=== PATIENT | male | born 2000 | race Caucasian/White ===

== ENCOUNTER 2020-11-06 16:29 | Emergency (ER) | payer SELFPAY ==
[2020-11-06] MEDS ORDERED: Ondansetron ODT 4 MG TAB ONE (16:42)
== END 2020-11-06 17:40 | disposition home or self-care (01) ==
LOC: ERS 16:29
DX: K21.9 Gastro-esophageal reflux disease without esophagitis (principal)
CPT/HCPCS: 99283; Q0162

== ENCOUNTER 2020-11-11 19:12 | Inpatient (IN) | payer SELFPAY ==
[~2020-11-11 19:12] MED LIST: Iopamidol-370 76% 500 ML 1 ML ONE
[2020-11-11 19:52] LABS: #Basophils 0.1 thou/uL (0.0-0.2); #Lymphocytes 2.2 thou/uL (1.20-3.40); #Monocytes 0.9 thou/uL (0.11-0.59); #Neutrophils 5.3 thou/uL (1.40-6.50); %Basophils 1.4 % (0.0-1.0); %Eosinophils 0.4 % (0.0-10.0); %Lymphocytes 25.4 % (21.0-51.0); %Monocytes 10.7 % (0.0-10.0); %Neutrophils 62.1 % (42.0-75.0); Hemoglobin 19.2 g/dL (14.0-18.0); Mean Corpuscular HGB CONC 34.9 g/dL (32.0-36.0); Mean Corpuscular Hemoglobin 29.7 pg (27.0-31.0); Mean Corpuscular Volume 85.2 fL (78.0-98.0); Mean Platelet Volume 7.6 fL (7.4-10.4); Platelet Count 367 thou/uL (130-400); RBC Distribution Width 11.9 % (11.5-14.5); Red Blood Cell (RBC) Count 6.45 mill/uL (4.70-6.10); White Blood Cell (WBC) Count 8.5 thou/uL (4.8-10.8)
--- NOTE | 2020-11-11 20:00 | RAD ---
EXAM: CHEST ONE VIEW HISTORY: Intermittent diffuse abdominal pain/epigastric pain. Nausea and vomiting. COMPARISON: None FINDINGS: The cardiac silhouette and pulmonary vasculature are within normal limits. The lungs are expanded and clear. The osseous structures are intact. IMPRESSION: No acute cardiopulmonary process.
[2020-11-11 20:15] LABS: ALT (SGPT) 32 U/L (8-55); AST (SGOT) 17 U/L (5-34); Albumin 5.4 g/dL (3.5-5.0); Alkaline Phosphatase 114 U/L (40-110); BUN (Urea Nitrogen) 16 mg/dL (8.9-20.6); Bilirubin, Total 0.9 mg/dL (0.2-1.2); Calc. Creatinine Clearance 0 mL/min (70-130); Chloride 102 mmol/L (98-107); Globulin 3.7 g/dL (2.4-3.5); Glucose 456 mg/dL (70-105); Lipase 26 U/L (8-78); Protein, Total 9.1 g/dL (6.0-8.3); Sodium 133 mmol/L (136-145)
[2020-11-11 20:33] LABS: Free T4 (Free Thyroxine) 0.9 ng/dL (0.70-1.48); Thyroid Stimulating Hormone 1.8938 uIU/mL (0.35-4.94)
--- NOTE | 2020-11-11 20:37 | CT ---
CT ANGIOGRAM THORAX WITH IV CONTRAST AND 3-D RECONSTRUCTIONS CLINICAL INDICATION: Chest pain and weight loss. Shortness of breath over past week. COMPARISON: None FINDINGS: Pulmonary arteries: No filling defects are seen in the pulmonary arteries to suggest a pulmonary embo nasrin. Aorta: The aorta is normal in caliber without evidence of an aortic dissection. Lungs: Clear without evidence of consolidation or pleural effusion. Large airways are patent. Mediastinum: No enlarged lymph nodes are seen by CT size criteria. Thyroid gland: Incompletely imaged. Imaged inferior portion thyroid gland has a normal appearance Osseous structures: No suspicious lytic or sclerotic osseous lesion. Chest wall: No abnormality visualized. Upper abdomen: There are several nonobstructing right renal calculi visualized largest in the superio r pole measuring 4 mm. IMPRESSION: 1. No CT evidence of a pulmonary embolus. 2. No acute findings in the chest. 3. Nonobstructing right renal calculi.
[2020-11-11 20:43] LABS: Bacteria/HPF None Seen HPF (None Seen); Bilirubin Negative (Negative); Blood, Urine Trace (Negative); Clarity Clear (Clear); Glucose, Urine (Dipstick) Greater than 1000 mg/dL (Negative); Ketone, Urine Greater than 150 mg/dL (Negative); Leukocyte Negative Leu/uL (Negative); Nitrite Negative (Negative); Protein, Urine (Dipstick) 70 mg/dL (Neg-Trace); RBC/HPF 0-3 HPF (0-3); Specific Gravity, Urine 1.031 (1.002-1.036); Squamous Epithelial 0-3 HPF (0-3); Urobilinogen Normal mg/dL (Less than 2); WBC/HPF 0-3 HPF (0-3); pH, Urine 5.5 (5.0-9.0)
[2020-11-11 20:44] LABS: Carbon Dioxide Less than 8 mmol/L (22-29)
[2020-11-11 20:49] LABS: Amphetamine Not Detected (NotDetected); Barbiturates Screen Not Detected (NotDetected); Benzodiazepine Screen Not Detected (NotDetected); Cocaine Metabolite Screen Not Detected (NotDetected); Medtox Control Line Valid? VALID (VALID); Medtox Reader # READER 4; Methadone Not Detected (NotDetected); Methamphetamine Not Detected (NotDetected); Opiate Screen Not Detected (NotDetected); Oxycodone Screen Not Detected (NotDetected); Phencyclidine (PCP) Not Detected (NotDetected); THC/Cannabinoid Screen Not Detected (NotDetected); Tricyclic Screen Not Detected (NotDetected)
--- NOTE | 2020-11-11 21:24 | CT ---
CT CHEST WITHOUT CONTRAST: History: Abdominal pain Comparison: None FINDINGS: Although this is a noncontrast exam, given the CT angiogram that was performed just 25 minutes before , contrast is seen in the renal collecting systems, therefore, rendering evaluation for calculi is no ndiagnostic. Contrast through both renal collecting systems, ureters, and the urinary bladder. The previously desc ribed superior interpolar and renal calculi are poorly seen. No dilated loops of large or small bowel. No free intraperitoneal gas or fluid. No acute osseous abno rmality. Solid organ evaluation is limited without intravenous contrast and lack of normal fat along with stre ak artifact from the extensive contrast in the systems. No perigallbladder inflammation. IMPRESSION: 1. Poor visualization of the renal calculi due to contrast within the collecting systems, ureter s, and urinary bladder. No significant hydroureteronephrosis. 2. No other acute inflammatory process in the abdomen or pelvis, which is limited to noncontrast exam. POS: HOME
[2020-11-11] MEDS ORDERED: NS 0.9% w/ 40 MEQ KCL 1,000 ML IV SCH (21:45)
[2020-11-11 21:51] LABS: Analyzer IN Cardio ER; Base Excess -22.4 mEq/L (-2.0 to +3.0); Calcium, Ionized (venous) 1.24 mmol/L (1.16-1.32); Chloride (VBG) 108 mmol/L (98-106); Hemoglobin (Hb) 16.6 g/dL (13.2-17.3); Potassium (VBG) 4.14 mmol/L (3.70-5.30); Sodium 136.5 mmol/L (133-146)
[2020-11-11 21:58] LABS: Actual Bicarbonate (HCO3v) 6 mEq/L (22-28); pH (venous) 7.08 (7.32-7.43)
[2020-11-11] MEDS ORDERED: Sodium Bicarb 50 MEQ/50 ML Abboject 8.4% SYRINGE ONE (22:09)
[2020-11-11] MEDS ORDERED: INSULIN REGULAR IN 0.9 % NACL 100 UNIT/100 ML BAG ONE (22:09)
[2020-11-11 22:49] LABS: Lactic Acid 1.9 mmol/L (0.5-2.2)
[2020-11-11] MEDS ORDERED: Electrolyte Replacement Protocol 1 EACH IVPB PRN (23:43)
[2020-11-11] MEDS ORDERED: Ondansetron ODT 4 MG TAB PO PRN (23:43)
[2020-11-11] MEDS ORDERED: Ondansetron PF 4 MG/2 ML Vial IVP PRN (23:43)
[2020-11-11] MEDS ORDERED: Dextrose 5 %-0.45 % NaCl 1,000 ML IV PRN (23:43)
[2020-11-11] MEDS ORDERED: Sodium Chloride 0.9% 1,000 ML IV PRN ×4 (23:43)
[2020-11-11] MEDS ORDERED: NS 0.9% w/ 20 MEQ KCL 1,000 ML IV PRN ×2 (23:43)
[2020-11-11] MEDS ORDERED: Acetaminophen 325 MG TAB PO PRN (23:43)
[2020-11-11] MEDS ORDERED: HUMULIN R 100 UNITS in Sodium Chloride 0.9% 100 ML IVPB SCH (23:59)
--- NOTE | 2020-11-12 00:03 | PDOC.HHP ---
Hospitalist HPI - History of Present Illness Weight loss, polyuria History of Present Illness: This a 20-year-old male patient with a history of anxiety who presents to the ED on account of abdominal discomfort, polyuria and polydipsia over the past couple of weeks. Patient notes that his symptoms have been going on for several weeks and he was unsure what was going on. He presented to the ED and he on account of abdominal pain and he was discharged on account of possible GERD. With persistent symptoms however came in again. Besides abdominal pain, polyuria, nausea, palpitation and some mild chest pain and general wellness. He denies any diarrhea constipation, fever cough or shortness of breath. At presentation his blood pressure was 126/61, temperature 98.0 respiratory rate ranging between 12 and 18 and saturation 100% on room air. Labs showed hemoglobin of 19.2, platelets 367 and WBC 8.5. Chemistry showed sodium of 133, bicarb was less than 8, anion gap was not calculated above and his creatinine was 1.95. Blood sugar was 456 and beta hydroxybutyrate was 8.83 VBG showed a pH of 7.08. CT scan of chest and abdomen revealed no acute events. He was diagnosed with DKA and Started on amp of bicarb. Normal saline bolus and insulin drip with potassium replacement. Hospitalist was consulted for admission. Hospitalist ROS - Review of Systems Constitutional: reports: weakness, malaise. denies: fever, chills, sweats Respiratory: denies: cough, dry, shortness of breath, hemoptysis Cardiovascular: reports: chest pain, palpitations. denies: orthopnea, paroxysmal noc. dyspnea Gastrointestinal: reports: nausea, abdominal pain. denies: vomiting, diarrhea, constipation Genitourinary: reports: other (Polyuria). denies: dysuria, frequency, incontinence, hematuria, retention Musculoskeletal: denies: neck pain, shoulder pain, arm pain, back pain Skin: denies: rash, lesions, morgan Neurological: denies: weakness, numbness, incoordination, change in speech All other systems reviewed; all pertinent +/- noted in HPI/Subj - Medication Medications: Active Medications Generic Name Dose Route Start Last Admin Trade Name Freq PRN Reason Stop Dose Admin Potassium Chloride/Sodium Chloride 1,000 mls @ 250 mls/hr 11/11/20 21:45 11/11/20 22:50 Ns 0.9% W/ 40 Meq Kcl IV 11/12/20 01:44 1,000 mls .Q4H ADONIS Administration Allergies: Penicillin. Hospitalist History - Past Medical History Other Medical History: Anxiety - Past Surgical History Past Surgical History: reports: no pertinent history - Family History Family History: reports: no pertinent history - Social History Smoking Status: Never smoker Alcohol: reports: None Living Situation: With Family - Exam General Appearance: awake alert ENT: normocephalic atraumatic, no oropharyngeal lesions Heart: RRR, no murmur, no gallops, no rubs Respiratory: CTAB, no wheezes, no rales, no ronchi Gastrointestinal: soft, non-tender, non-distended, normal bowel sounds Extremities: no cyanosis, no clubbing, no edema Neurological: cranial nerve grossly intact, no focal deficits Psychiatric: normal affect, normal behavior, A&O x 3 Hospitalist Results - Labs Result Diagrams: 11/11/20 19:39 11/11/20 23:50 Lab results: WBC 8.5 thou/uL (4.8-10.8) 11/11/20 19:39 Hgb 19.2 g/dL (14.0-18.0) H 11/11/20 19:39 Hct 55.0 % (42.0-52.0) H 11/11/20 19:39 MCV 85.2 fL (78.0-98.0) 11/11/20 19:39 Plt Count 367 thou/uL (130-400) 11/11/20 19:39 Neutrophils % 62.1 % (42.0-75.0) 11/11/20 19:39 VBG pH 7.08 (7.32-7.43) L* 11/11/20 21:45 VBG pCO2 19.4 mmHg (42.0-51.0) L* 11/11/20 21:45 VBG pO2 164.6 mmHg (35.0-45.0) H 11/11/20 21:45 Sodium 133 mmol/L (136-145) L 11/11/20 19:39 Potassium 4.0 mmol/L (3.5-5.1) 11/11/20 19:39 Chloride 102 mmol/L (98-107) 11/11/20 19:39 Carbon Dioxide Less than 8 mmol/L (22-29) L* 11/11/20 19:39 BUN 16 mg/dL (8.9-20.6) 11/11/20 19:39 Creatinine 1.95 mg/dL (0.7-1.3) H 11/11/20 19:39 Glucose 456 mg/dL (70-105) H 11/11/20 19:39 Lactic Acid 1.9 mmol/L (0.5-2.2) 11/11/20 22:19 Calcium 10.0 mg/dL (7.8-10.44) 11/11/20 19:39 Total Bilirubin 0.9 mg/dL (0.2-1.2) 11/11/20 19:39 AST 17 U/L (5-34) 11/11/20 19:39 ALT 32 U/L (8-55) 11/11/20 19:39 Alkaline Phosphatase 114 U/L (40-110) H 11/11/20 19:39 Troponin I Less than 0.010 ng/mL (< 0.028) 11/11/20 19:39 Serum Total Protein 9.1 g/dL (6.0-8.3) H 11/11/20 19:39 Albumin 5.4 g/dL (3.5-5.0) H 11/11/20 19:39 Lipase 26 U/L (8-78) 11/11/20 19:39 Urine Ketones Greater than 150 mg/dL (Negative) A 11/11/20 20:10 Urine Blood Trace (Negative) A 11/11/20 20:10 Urine Nitrite Negative (Negative) 11/11/20 20:10 Ur Leukocyte Esterase Negative Yumiko/uL (Negative) 11/11/20 20:10 Urine RBC 0-3 HPF (0-3) 11/11/20 20:10 Urine WBC 0-3 HPF (0-3) 11/11/20 20:10 Ur Squamous Epith Cells 0-3 HPF (0-3) 11/11/20 20:10 Urine Bacteria None Seen HPF (None Seen) 11/11/20 20:10 Hospitalist H&P A/P - Plan Plan: 20-year-old male patient history of anxiety presenting with generalized abdominal and chest pain with polyuria nausea diagnosed with new onset DKA. DKA Start on DKA protocol Monitor BMP every 4 Electrolyte replacement as needed. Transition to subcut insulin once indicated. History of anxiety Currently stable We will monitor. CODE STATUSfull code VT prophylaxis SCD
[2020-11-12 00:12] LABS: Anion Gap 24 mmol/L (10-20); BUN (Urea Nitrogen) 13 mg/dL (8.9-20.6); Calc. Creatinine Clearance 0 mL/min (70-130); Calcium 8.5 mg/dL (7.8-10.44); Chloride 110 mmol/L (98-107); Glucose 236 mg/dL (70-105); Potassium 3.9 mmol/L (3.5-5.1); Sodium 138 mmol/L (136-145)
[2020-11-12 00:27] LABS: Carbon Dioxide 8 mmol/L (22-29); Phosphorus 1.4 mg/dL (2.3-4.7)
[2020-11-12 03:24] LABS: Anion Gap 15 mmol/L (10-20); BUN (Urea Nitrogen) 13 mg/dL (8.9-20.6); Calc. Creatinine Clearance 0 mL/min (70-130); Calcium 8.2 mg/dL (7.8-10.44); Carbon Dioxide 13 mmol/L (22-29); Chloride 108 mmol/L (98-107); Glucose 142 mg/dL (70-105); Potassium 3.6 mmol/L (3.5-5.1); Sodium 132 mmol/L (136-145)
[2020-11-12] MEDS: D5 1/2 NS w/20 mEq KCL 1,000 ML IV PRN ×2 (03:58→13:52)
[2020-11-12 05:29] LABS: SARS-CoV-2 MS2 Positive; SARS-CoV-2 N Gene Negative; SARS-CoV-2 S Gene Negative; SARS-CoV-2 by NAA Not Detected (NotDetected); SARS-CoV-2 orf1ab Negative
[2020-11-12 05:52] LABS: Anion Gap 13 mmol/L (10-20); BUN (Urea Nitrogen) 12 mg/dL (8.9-20.6); Calc. Creatinine Clearance 0 mL/min (70-130); Calcium 8.3 mg/dL (7.8-10.44); Carbon Dioxide 14 mmol/L (22-29); Chloride 107 mmol/L (98-107); Glucose 221 mg/dL (70-105); Potassium 3.4 mmol/L (3.5-5.1); Sodium 131 mmol/L (136-145)
[2020-11-12] MEDS ORDERED: Magnesium 2 GM/50 ML 2 GM in Premix Bag 1 BAG IVPB SCH (06:30)
[2020-11-12] MEDS ORDERED: Magnesium 2 GM/50 ML BAG (IN WATER) ONE (06:40)
[2020-11-12] MEDS ORDERED: Potassium Chloride 20 MEQ TAB ONE ×2 (06:41)
[2020-11-12] MEDS ORDERED: Potassium Chloride 20 MEQ TAB PO SCH (06:45)
[2020-11-12 08:12] LABS: Anion Gap 11 mmol/L (10-20); BUN (Urea Nitrogen) 11 mg/dL (8.9-20.6); Calc. Creatinine Clearance 0 mL/min (70-130); Calcium 8.2 mg/dL (7.8-10.44); Carbon Dioxide 15 mmol/L (22-29); Chloride 108 mmol/L (98-107); Glucose 234 mg/dL (70-105); Potassium 3.4 mmol/L (3.5-5.1); Sodium 131 mmol/L (136-145)
[2020-11-12] MEDS ORDERED: Benzonatate 100 MG CAP PO PRN (08:52)
[2020-11-12] MEDS ORDERED: Sodium Chloride 0.65% Nasal 44 ML BOT EA NARE PRN (08:52)
[2020-11-12] MEDS ORDERED: HYDROcodone/Acetaminophen 5/325 mg Tablet PO PRN (08:52)
[2020-11-12] MEDS ORDERED: Loperamide HCl 2 MG CAP PO PRN (08:52)
[2020-11-12] MEDS ORDERED: Bisacodyl 10 MG SUPP PR PRN (08:52)
[2020-11-12] MEDS ORDERED: Senokot S 8.6-50 MG TAB PO PRN (08:52)
[2020-11-12] MEDS ORDERED: Diabetic Tussin 200 MG/10 ML UDCUP PO PRN (08:52)
[2020-11-12] MEDS ORDERED: Loratadine 10 MG TAB PO PRN (08:52)
[2020-11-12] MEDS ORDERED: Zolpidem Tartrate 5 MG TAB PO PRN (08:52)
[2020-11-12] MEDS ORDERED: Calcium Carbonate 500 MG ChewTAB PO PRN (08:52)
[2020-11-12] MEDS ORDERED: Cepastat Lozenges 1 LOZ PO PRN (08:52)
[2020-11-12] MEDS: PHOS-NAK 1 PKT PACK PO SCH ×4 (09:03→20:12)
--- NOTE | 2020-11-12 10:14 | PDOC.HOSPP ---
- Subjective Encounter Date: 11/12/20 Encounter Time: 10:12 Subjective: Patient seen and examined. No new complaints. No overnight events - Objective I&O: 11/11/20 11/12/20 11/13/20 06:59 06:59 06:59 Output Total 1650 Balance -1650 Result Diagrams: 11/11/20 19:39 11/12/20 07:46 Additional Labs: Accuchecks 11/12/20 11/12/20 11/12/20 08:09 06:56 05:41 POC Glucose 189 H 246 H 213 H 11/12/20 11/12/20 11/12/20 04:38 03:42 02:39 POC Glucose 164 H 143 H 145 H 11/12/20 11/12/20 11/11/20 01:40 00:27 23:34 POC Glucose 180 H 222 H 239 H 11/11/20 22:23 POC Glucose 305 H Radiology Reviewed by me: Yes EKG Reviewed by me: Yes Hospitalist ROS - Review of Systems Eyes: denies: pain, vision change, conjunctivae inflammation, eyelid inflammation, redness, other ENT: denies: ear pain, ear discharge, nose pain, nose discharge, nose congestion, mouth pain, mouth swelling, throat pain, throat swelling, other Respiratory: denies: cough, dry, shortness of breath, hemoptysis, SOB with excertion, pleuritic pain, sputum, wheezing, other Cardiovascular: denies: chest pain, palpitations, orthopnea, paroxysmal noc. dyspnea, edema, light headedness, other Gastrointestinal: denies: nausea, vomiting, abdominal pain, diarrhea, constipation, melena, hematochezia, other Genitourinary: denies: dysuria, frequency, incontinence, hematuria, retention, other Musculoskeletal: denies: neck pain, shoulder pain, arm pain, back pain, hand pain, leg pain, foot pain, other - Medication Medications: Active Medications Generic Name Dose Route Start Last Admin Trade Name Freq PRN Reason Stop Dose Admin Potassium Chloride/Dextrose/Sod Cl 1,000 mls @ 250 mls/hr 11/11/20 23:43 11/12/20 03:58 D5 1/2 Ns W/20 Meq Kcl IV 1,000 mls .Q4H PRN Administration Step 4 of DKA Protocol Protocol Miscellaneous Medication 2 pkt 11/12/20 08:00 11/12/20 09:03 Phos-Nak 1 Pkt Pack PO 11/12/20 20:01 Not Given Q4H ADONIS - Exam General Appearance: NAD, awake alert Eye: PERRL, anicteric sclera ENT: normocephalic atraumatic, no oropharyngeal lesions Neck: supple, symmetric, no JVD, no thyromegaly Heart: RRR, no murmur, no gallops, no rubs Respiratory: CTAB, no wheezes, no rales, no ronchi Gastrointestinal: soft, non-tender, non-distended, normal bowel sounds Extremities: no cyanosis, no clubbing, no edema Skin: normal turgor, no lesions Neurological: no focal deficits Musculoskeletal: normal tone, normal strength Psychiatric: normal affect, normal behavior Hosp A/P (1) New onset type 1 diabetes mellitus, uncontrolled Code(s): E10.65 - TYPE 1 DIABETES MELLITUS WITH HYPERGLYCEMIA Status: Acute (2) DKA, type 1 Code(s): E10.10 - TYPE 1 DIABETES MELLITUS WITH KETOACIDOSIS WITHOUT COMA Status: Acute (3) Hypokalemia Code(s): E87.6 - HYPOKALEMIA Status: Acute (4) Hypomagnesemia Code(s): E83.42 - HYPOMAGNESEMIA Status: Acute - Plan old records reviewed/req, plan discussed w/ family Continue DKA protocol) Monitor labs Replace electrolytes accordingly Consult dietitian for diabetes education We will repeat labs tomorrow
[2020-11-12] MEDS: Famotidine 20 MG TAB PO SCH ×2 (11:11→20:12)
[2020-11-12] MEDS ORDERED: Enoxaparin Sodium 40 MG/0.4 ML SYRINGE ONE (11:13)
[2020-11-12] MEDS: Enoxaparin Sodium 40 MG/0.4 ML SYRINGE SC SCH (11:17)
[2020-11-12 11:57] VITALS: BMI 16.7
[2020-11-12 12:34] LABS: Anion Gap 11 mmol/L (10-20); BUN (Urea Nitrogen) 8 mg/dL (8.9-20.6); Calc. Creatinine Clearance 91 mL/min (70-130); Calcium 8.1 mg/dL (7.8-10.44); Carbon Dioxide 16 mmol/L (22-29); Chloride 109 mmol/L (98-107); Glucose 167 mg/dL (70-105); Potassium 3.2 mmol/L (3.5-5.1); Sodium 133 mmol/L (136-145)
[2020-11-13 04:29] LABS: #Eosinphils 0.1 thou/uL (0.0-0.7); #Monocytes 0.5 thou/uL (0.11-0.59); #Neutrophils 1.5 thou/uL (1.40-6.50); %Basophils 0.5 % (0.0-1.0); %Eosinophils 1.9 % (0.0-10.0); %Lymphocytes 48.8 % (21.0-51.0); %Monocytes 12.5 % (0.0-10.0); %Neutrophils 36.3 % (42.0-75.0); ALT (SGPT) 20 U/L (8-55); AST (SGOT) 18 U/L (5-34); Albumin 3.5 g/dL (3.5-5.0); Alkaline Phosphatase 71 U/L (40-110); Anion Gap 12 mmol/L (10-20); BUN (Urea Nitrogen) 5 mg/dL (8.9-20.6); Bilirubin, Total 1.1 mg/dL (0.2-1.2); Calc. Creatinine Clearance 115 mL/min (70-130); Calcium 8.4 mg/dL (7.8-10.44); Carbon Dioxide 21 mmol/L (22-29); Chloride 104 mmol/L (98-107); Globulin 2.1 g/dL (2.4-3.5); Glucose 156 mg/dL (70-105); Hemoglobin 13.9 g/dL (14.0-18.0); Magnesium 1.9 mg/dL (1.6-2.6); Mean Corpuscular HGB CONC 34.5 g/dL (32.0-36.0); Mean Corpuscular Hemoglobin 28.8 pg (27.0-31.0); Mean Corpuscular Volume 83.7 fL (78.0-98.0); Mean Platelet Volume 7.3 fL (7.4-10.4); Phosphorus 1.5 mg/dL (2.3-4.7); Platelet Count 158 thou/uL (130-400); Potassium 3.1 mmol/L (3.5-5.1); Protein, Total 5.6 g/dL (6.0-8.3); RBC Distribution Width 11.5 % (11.5-14.5); Red Blood Cell (RBC) Count 4.81 mill/uL (4.70-6.10); Sodium 134 mmol/L (136-145); White Blood Cell (WBC) Count 4.1 thou/uL (4.8-10.8)
[2020-11-13] MEDS ORDERED: PHOS-NAK 1 PKT PACK PO SCH (05:00)
[2020-11-13] MEDS ORDERED: Magnesium 2 GM/50 ML 2 GM in Premix Bag 1 BAG IVPB SCH (05:00)
[2020-11-13] MEDS ORDERED: Potassium Phosphate 22 MMOL in Sodium Chloride 0.9% 250 ML 250 ML IVPB SCH (05:00)
[2020-11-13] MEDS: D5 1/2 NS w/20 mEq KCL 1,000 ML IV PRN (06:23)
[2020-11-13] MEDS ORDERED: FLU VACC QS2020-21(6MOS UP)/PF 60 MCG/0.5 ML SYRINGE IM ONE (09:00)
[2020-11-13] MEDS: Enoxaparin Sodium 40 MG/0.4 ML SYRINGE SC SCH (09:03)
[2020-11-13] MEDS: Famotidine 20 MG TAB PO SCH ×2 (09:03→22:47)
[2020-11-13] MEDS ORDERED: NPH, Human Insulin Isophane 300 UNIT/3 ML VIAL SC SCH (09:30)
[2020-11-13] MEDS ORDERED: Dextrose 5% in Water 1,000 ML IV PRN (09:31)
[2020-11-13] MEDS ORDERED: Insulin Regular 300 UNITS/3 ML VIAL SC PRN ×2 (09:31)
[2020-11-13] MEDS ORDERED: Dextrose 50% Abboject 50 ML SYRINGE SLOW IVP PRN (09:31)
[2020-11-13] MEDS: 1/2 NS w/KCL 20 mEq 1,000 ML IV SCH ×2 (10:21→19:08)
[2020-11-13] MEDS: NPH, Human Insulin Isophane 300 UNIT/3 ML VIAL SC SCH (23:02)
[2020-11-14] MEDS: 1/2 NS w/KCL 20 mEq 1,000 ML IV SCH ×2 (01:00→13:30)
[2020-11-14] MEDS ORDERED: Enoxaparin Sodium 40 MG/0.4 ML SYRINGE SC SCH (09:00)
[2020-11-14] MEDS ORDERED: Famotidine 20 MG TAB PO SCH (09:00)
[2020-11-14] MEDS ORDERED: Insulin Regular 300 UNITS/3 ML VIAL SC PRN (09:27)
--- NOTE | 2020-11-14 10:56 | PDOC.HOSPP ---
- Subjective Encounter Date: 11/13/20 Encounter Time: 17:00 Subjective: Patient seen and examined for diabetic ketoacidosis. Denies any nausea, vomiting or abdominal pain. No fever or chills reported. - Objective Vital Signs & Weight: Vital Signs (12 hours) Temp Pulse Resp BP Pulse Ox 11/14/20 07:22 98.3 F 93 19 134/78 100 11/14/20 04:00 98.3 F 78 16 124/81 100 11/14/20 00:00 98.5 F 94 16 112/79 100 Weight Admit Weight 110 lb Weight 110 lb Most Recent Monitor Data Heart Rate from ECG 75 NIBP 117/82 NIBP BP-Mean 93 Respiration from ECG 20 SpO2 99 I&O: 11/13/20 11/14/20 11/15/20 06:59 06:59 06:59 Intake Total 5394 1600 Output Total 4000 550 Balance 1394 1050 Result Diagrams: 11/13/20 03:42 11/13/20 03:42 Additional Labs: Accuchecks 11/14/20 11/13/20 11/13/20 04:10 22:36 19:44 POC Glucose 77 265 H 221 H 11/13/20 11/13/20 13:06 12:09 POC Glucose 78 85 Abnormal Lab Results - Last 48 hrs 11/12/20 12:02: Sodium 133 L, Potassium 3.2 L, Chloride 109 H, Carbon Dioxide 16 L, BUN 8 L 11/13/20 03:42: Sodium 134 L, Potassium 3.1 L, Carbon Dioxide 21 L, BUN 5 L, Phosphorus 1.5 L, Serum Total Protein 5.6 L, Globulin 2.1 L 11/13/20 03:42: Hemoglobin A1c 12.0 H 11/13/20 03:42: WBC 4.1 L, Hgb 13.9 L, Hct 40.3 L, MPV 7.3 L, Neutrophils % 36.3 L, Monocytes % 12.5 H Radiology Reviewed by me: Yes (Chest x-ray negative for infiltrate) Hospitalist ROS - Review of Systems Respiratory: denies: cough, dry, shortness of breath, hemoptysis, SOB with excertion, pleuritic pain, sputum, wheezing, other Cardiovascular: denies: chest pain, palpitations, orthopnea, paroxysmal noc. dyspnea, edema, light headedness, other - Medication Medications: Active Medications Generic Name Dose Route Start Last Admin Trade Name [place] PRN Reason Stop Dose Admin Potassium Chloride/Sodium Chloride 1,000 mls @ 125 mls/hr 11/13/20 09:30 01:00 1/2 Ns W/Kcl 20 Meq IV 1,000 mls .Q8H ADONIS Administration Insulin Human NPH 10 unit 11/13/20 21:00 11/13/20 23:02 Nph, Human Insulin Isophane 300 Unit/3 Ml Vial SC 10 unit BID ADONIS Administration Sodium Chloride 10 ml 11/12/20 09:00 11/13/20 21:03 Flush - Normal Saline 10 Ml Syringe IVF Not Given Q12HR ADONIS - Exam General Appearance: NAD, awake alert ENT: normocephalic atraumatic, no oropharyngeal lesions Neck: supple, no JVD Heart: no gallops, no rubs Respiratory: no wheezes, no rales Gastrointestinal: non-tender, no guarding, no rigidity Extremities: no cyanosis Neurological: no new deficit Psychiatric: normal affect, A&O x 3 Hosp A/P - Plan DVT proph w/SCDs Diabetic ketoacidosis New diagnosis of diabetes type 1 History of anxiety Hypokalemia Hyponatremia Metabolic acidosis due to DKA Dehydration due to DKA Plan: Patient transferred to medical floor. Insulin drip transitioned to subacute NPH due to cost. Change IV fluid to half NS with potassium. Continue Pepcid. Start NPH 10 units twice daily. Dietitian consult. Insulin sliding scale. Change Accu-Cheks to before meals at bedtime. DC planning
[2020-11-14] MEDS: NPH, Human Insulin Isophane 300 UNIT/3 ML VIAL SC SCH (11:17)
[2020-11-14] MEDS: Famotidine 20 MG TAB PO SCH (11:31)
[2020-11-14] MEDS: Enoxaparin Sodium 40 MG/0.4 ML SYRINGE SC SCH (11:32)
[2020-11-14 16:34] VITALS: BP 151/96; TEMP 97.8
[2020-11-14] MEDS ORDERED: HumuLIN 70/30 (300 UNITS/3 ML VIAL) SC SCH (17:00)
--- NOTE | 2020-11-15 08:00 | PDOC.DS.DS ---
Provider - Provider Date of Admission: 11/11/20 22:00 Date of Discharge: 11/14/20 Admitting Provider: Munir Ramsay MD Consultations: None Primary Care Physician: Unknown Course - Hospital Course Hospital Course: Patient is a 20-year-old male with no history of diabetes mellitus presented to the hospital with generalized weakness with weight loss and polyuria. His work- up was consistent with new onset diabetes mellitus type 1 with diabetic k etoacidosis. His bicarbonate was less than 8 with a creatinine 1.95 and lactic acid was 3.4. His serum osmolality was 318. Beta hydroxybutyrate was 8.8. A1c came back as 12.0. He was managed in the [facility] with DKA protocol requiring insulin drip. Later on the drip was transitioned to subcu insulin. He has been educated on self insulin injection and various kind of insulin. Due to cost issue patient will be sent home on 70/30 insulin. He understands the plan of care. He also understands the risk associated with insulin not limited to life- threatening hypoglycemia. Final diagnosis: Diabetic ketoacidosis New diagnosis of diabetes type 1 with A1c of 12.0 History of anxiety Hypokalemia Hyponatremia Metabolic acidosis due to DKA Acute kidney injury due to dehydration/POA Lactic acidosis resolved Resuscitation Status: 11/11/20 23:43 Resuscitation Status Routine Resuscitation Status: FULL: Full Resuscitation - Labs Lab Results: 11/13/20 03:42 11/13/20 03:42 - Physical Exam Vitals: Weight Admit Weight 110 lb Weight 110 lb Most Recent Monitor Data Heart Rate from ECG 75 NIBP 117/82 NIBP BP-Mean 93 Respiration from ECG 20 SpO2 99 Physical Exam: The patient was seen and examined on the day of discharge. Plan - Discharge Medications Prescriptions: Blood-Glucose Meter [Blood Glucose Monitoring] 1 each MC BID #1 kit Insulin NPH Hum/Reg Insulin HM [Novolin 70/30] 10 unit SC BID-WM #2 vial Insulin NPH Hum/Reg Insulin HM [Novolin 70/30] 10 unit SC BID-WM #2 vial Home Medications: Medication Instructions Recorded Confirmed Type Blood-Glucose Meter [Blood Glucose 1 each MC BID #1 kit 11/14/20 Rx Monitoring] Insulin NPH Hum/Reg Insulin HM 10 unit SC BID-WM #2 vial 11/14/20 Rx [Novolin 70/30] Insulin NPH Hum/Reg Insulin HM 10 unit SC BID-WM #2 vial 11/14/20 Rx [Novolin 70/30] Allergies: Penicillins Allergy (Verified 11/11/20 21:40) - Discharge Instructions Discharge Instructions:: Please start with 8 units in AM and 6 units in PM. Please increase dose by 2 units every1-2 days to keep blood sugars under 200. Please maintain a blood sugar log - Follow up Plan Referrals: [facility] [MD Not on Staff] - 3 Days Disposition: HOME Quality - Care Measures CORE MEASURES:: N/A
== END 2020-11-14 17:07 | disposition home or self-care (01) | DRG 638 ==
LOC: ERS 19:12 → ERHOLD 22:00 → IMCU/EMU 11-12 11:42 → T4-A 11-13 13:45 → IMCU/EMU 11-13 13:45 → T4-A 11-13 15:58 → UNDODISIN 11-13 15:58
PROVIDERS: ADMIT Student in an Organized Health Care Education/Training Program; ATTEND Internal Medicine
DX: E10.10 Type 1 diabetes mellitus with ketoacidosis without coma (principal); E87.1 Hypo-osmolality and hyponatremia; N17.9 Acute kidney failure, unspecified; F41.9 Anxiety disorder, unspecified; E83.42 Hypomagnesemia; E86.0 Dehydration; Z20.828 Contact with and (suspected) exposure to other viral communicable diseases; E87.6 Hypokalemia; Z88.0 Allergy status to penicillin; Z79.899 Other long term (current) drug therapy
CPT/HCPCS: 36415; 36416; 71045; 71275; 74176; 80048; 80053; 80306; 81003; 81015; 82010; 82805; 83036; 83605; 83690; 83735; 83930; 84100; 84439; 84443; 84484; 85025; 85379; 87635; 93005; 96374; 96375; J1650; J1815; J3475; J3480; J3490; J7050; Q9967; U0003